=== PATIENT | male | born 1935 | race Caucasian/White ===

== ENCOUNTER 2016-11-26 12:45 | Emergency (ER) | payer MEDICARE, OTHER ==
[2016-11-26] MEDS ORDERED: Sodium Chloride 0.9% 10 ML Syringe FLUSH PRN (12:49)
--- NOTE | 2016-11-26 12:50 | EDM.PDOC ---
ED HPI DIZZINESS - General Chief Complaint: Neuro Symptoms/Deficits Stated Complaint: FROM CLINIC Time Seen by Provider: 11/26/16 12:47 Source of Information: Reports: Patient, Old records, RN, RN notes reviewed Exam Limitations: Reports: No limitations - History of Present Illness INITIAL COMMENTS - FREE TEXT/NARRATIVE: Arrives from clinic with c/o persistent dizziness with vomiting that began sometime this morning. Pt went to clinic requesting to see his PCP, but the doctor was out to lunch. Due to the general appearance of the pt and his Sx's the clinic nurse brought him over to the ER by wheel chair. Pt states he didn't feel well in general yesterday, but denies headache, CP, palpitations, visual changes, N/V, or dizziness at that time. Today he reports on set of dizziness, with a feeling that his balance was off, and lightheadedness with intense nausea but no vomiting. He denies headache, syncope, visual changes, acute weakness. He reports chronic/stable right sided weakness from a prior CVA. Hx ischemic CVA x3. AAA s/p sleeve repair. CAD s/p CAGB, pacer with ICD. Symptom Onset Date: 11/26/16 Timing/Duration: Reports: Constant Baseline Function: Reports: ambulatory Quality: Reports: lightheaded, spinning Severity: moderate Associated Symptoms: Reports: off balance - Related Data Allergies/ADRs: Allergies Allergy/AdvReac Type Severity Reaction Status Date / Time ciprofloxacin Allergy Other Verified 11/26/16 12:50 niacin Allergy FLUSHED Verified 11/26/16 12:50 [From Niaspan Extended-Release] Home Meds: Home Meds Acetaminophen 2 tab PO Q4H 05/04/15 [History] Amiodarone HCl [Amiodarone HCl] 1 tab PO DAILY 05/04/15 [History] Apixaban [Eliquis] 1 tab PO BID 05/04/15 [History] Nitroglycerin [Nitrostat] 1 tab SL ASDIRECTED PRN 05/04/15 [History] Fluvastatin Sodium [Fluvastatin ER] 80 mg PO ASDIRECTED 11/26/16 [History] Furosemide [Lasix] 20 mg PO DAILY 11/26/16 [History] Gabapentin [Neurontin] 300 mg PO BEDTIME 11/26/16 [History] Labetalol HCl [Labetalol] 1.5 tab PO DAILY 11/26/16 [History] Past Medical History HEENT History: Reports: Cataract, Impaired vision, Sinusitis Cardiovascular History: Reports: Aneurysm (AAA), Arrhythmia, Automatic implantable cardioverter defibrillators, Bypass, CAD, High cholesterol, Hypertension, Pacemaker, Stents Gastrointestinal History: Reports: GERD Musculoskeletal History: Reports: Arthritis, Back pain, chronic Neurological History: Reports: CVA Endocrine/Metabolic History: Reports: Hypothyroidism Hematologic History: Reports: B12 deficiency, Idiopathic thrombocytopenia - Past Surgical History HEENT Surgical History: Reports: Cataract surgery Cardiovascular Surgical History: Reports: AAA repair, AICD, Coronary artery bypass, Coronary artery stent, Pacer Other Cardiovascular Surgeries/Procedures: cardiac cath Social & Family History - Family History Family Medical History: Noncontributory - Tobacco Use Smoking Status *Q: Former Smoker - Recreational Drug Use Recreational Drug Use: No - Living Situation & Occupation Living situation: Reports: , with spouse Occupation: retired ED ROS GENERAL - Review of Systems Review Of Systems: See Below Constitutional: Reports: no symptoms HEENT: Reports: No symptoms Respiratory: Reports: Shortness of Breath Cardiovascular: Reports: Lightheadedness Endocrine: Reports: no symptoms GI/Abdominal: Reports: Nausea. Denies: Abdominal pain, Black stool, Bloody stool, Constipation, Diarrhea, Distension, Hematemesis, Hematochezia, Melena : Reports: no symptoms Musculoskeletal: Reports: no symptoms Skin: Reports: no symptoms Neurological: Reports: Confusion, Dizziness, Pre-Existing Deficit (Rt sided weakness from previous CVA.). Denies: Headache Hematologic/Lymphatic: Reports: no symptoms Immunologic: Reports: no symptoms ED EXAM, DIZZINESS - Physical Exam Exam: See Below Exam Limited By: No limitations General Appearance: alert, WD/WN, no apparent distress Eye Exam: bilateral eye: EOMI, normal inspection, PERRL Ears: normal external exam, normal canal, hearing grossly normal, normal TMs Nose: normal inspection, normal mucosa, no blood Throat/Mouth: Normal inspection, Normal lips, Normal teeth, Normal gums, Normal oropharynx, Normal voice, No airway compromise Head Exam: atraumatic, normocephalic Neck: normal inspection, supple, non-tender, full range of motion. No: lymphadenopathy (L), lymphadenopathy (R) Respiratory/Chest: no respiratory distress, no accessory muscle use Cardiovascular: normal peripheral pulses, regular rate, rhythm, no edema, no JVD , no murmur GI/Abdominal: normal bowel sounds, soft, non tender, no distention, no abnormal bruit (Male) Exam: Deferred Rectal (Males) Exam: Deferred Neurological: alert, normal mood/affect, CN II-XII intact, no motor/sensory deficits, oriented x 3 Back Exam: normal inspection, full range of motion. No: CVA tenderness (L), CVA tenderness (R) Extremities: normal inspection, normal range of motion, non-tender, no pedal edema, normal capillary refill Psychiatric: normal affect, normal mood Skin Exam: Warm, Dry, Intact, Normal color, No rash EKG INTERPRETATION EKG Date: 11/26/16 Time: 12:58 Rhythm: other (Paced without capture) Rate (beats/min): 68 Comparison: NA - no prior EKG Course - Vital Signs Last Recorded V/S: Last Vital Signs Temp 36.2 C 11/26/16 12:53 Pulse 70 11/26/16 13:43 Resp 18 11/26/16 13:43 BP 130/85 11/26/16 13:43 Pulse Ox 96 11/26/16 13:43 - Orders/Labs/Meds Orders: Active Orders 24 hr Category Date Time Status EKG 12 Lead [EKG Documentation Completion] [RC] STAT Care 11/26/16 12:50 Active Orthostatic Vital Signs [RC] ASDIRECTED Care 11/26/16 12:58 Active Peripheral IV Care [RC] . DIRECTED Care 11/26/16 12:50 Active Head wo Cont [CT] Stat Exams 11/26/16 12:59 Taken DRUG SCREEN URINE BIORAD [URCHEM] Stat Lab 11/26/16 12:50 Uncollected UA W/MICROSCOPIC [URIN] Stat Lab 11/26/16 12:50 Uncollected Sodium Chloride 0.9% [Saline Flush] Med 11/26/16 12:49 Active 10 ml FLUSH ASDIRECTED PRN Peripheral IV Insertion Adult [OM.PC] Stat Oth 11/26/16 12:50 Ordered Medication Orders Sodium Chloride (Saline Flush) 10 ml FLUSH ASDIRECTED PRN PRN Reason: Keep Vein Open Last Admin: 11/26/16 13:09 Dose: 10 ml Labs: Laboratory Tests 11/26/16 11/26/1617 Range/Units 12:58 12:58 12:58 WBC 6.8 (5.0-10.0) 10^3/uL RBC 4.35 L (4.6-6.2) 10^6/uL Hgb 14.1 (14.0-18.0) g/dL Hct 41.3 (40.0-54.0) % MCV 94.9 (80-100) fL MCH 32.4 (27.0-34.0) pg MCHC 34.1 (33.0-35.0) g/dL Plt Count 161 (150-450) 10^3/uL Neut % (Auto) 56.1 (42.2-75.2) % Lymph % (Auto) 25.6 (20.5-50.1) % [place] % (Auto) 12.0 H (2-8) % Eos % (Auto) 5.9 H (1.0-3.0) % Baso % (Auto) 0.4 (0.0-1.0) % Add Manual Diff Yes Neutrophils % (Manual) 55 % Band Neutrophils % 2 % Lymphocytes % (Manual) 26 % Monocytes % (Manual) 10 % Eosinophils % (Manual) 7 % PT 11.2 (9.0-12.0) SEC INR 1.1 (0.9-1.2) APTT 30.3 (22.0-34.0) SEC Sodium 139 (135-145) mmol/L Potassium 4.1 (3.6-5.0) mmol/L Chloride 104 (101-111) mmol/L Carbon Dioxide 28.0 (21.0-31.0) mmol/L Anion Gap 11.1 BUN 25 H (7-18) mg/dL Creatinine 1.0 (0.6-1.3) mg/dL Est Cr Clr Drug Dosing 56.92 mL/min Estimated GFR (MDRD) > 60 BUN/Creatinine Ratio 25.00 Glucose 91 (74-105) mg/dL Calcium 9.4 (8.4-10.2) mg/dl Total Bilirubin 0.8 (0.2-1.0) mg/dL AST 21 (10-42) IU/L ALT 19 (10-60) IU/L Alkaline Phosphatase 38 L (42-121) IU/L Troponin I < 0.02 (0.00-0.02) ng/ml B-Natriuretic Peptide 193 H (0-100) pg/ml Total Protein 7.0 (6.7-8.2) g/dl Albumin 4.1 (3.2-5.5) g/dl Globulin 2.9 Albumin/Globulin Ratio 1.41 Meds: Medications Generic Name Dose Route Start Last Admin Trade Name Freq PRN Reason Stop Dose Admin Sodium Chloride 10 ml 11/26/16 12:49 11/26/16 13:09 Saline Flush FLUSH 10 ml ASDIRECTED PRN Administration Keep Vein Open Discontinued Medications Generic Name Dose Route Start Last Admin Trade Name Freq PRN Reason Stop Dose Admin Ondansetron HCl 4 mg 11/26/16 13:12 11/26/16 13:16 Zofran IV 11/26/16 13:13 4 mg ONETIME ONE Administration - Radiology Interpretation Free Text/Narrative:: CT Head: acute I.C. hemorrhage, see Rad. report. Departure - Departure Time of Disposition: 14:02 Disposition: DC/Tfer to Acute Hospital 02 Condition: critical Clinical Impression: Hemorrhagic cerebrovascular accident (CVA) Forms: ED Department Discharge, Interfacility Transfer EMTALA - My Orders Last 24 Hours: My Active Orders 11/26/16 12:49 Sodium Chloride 0.9% [Saline Flush] 10 ml FLUSH ASDIRECTED PRN 11/26/16 12:50 EKG 12 Lead [EKG Documentation Completion] [RC] STAT Peripheral IV Care [RC] . DIRECTED DRUG SCREEN URINE BIORAD [URCHEM] Stat UA W/MICROSCOPIC [URIN] Stat Peripheral IV Insertion Adult [OM.PC] Stat 11/26/16 12:58 Orthostatic Vital Signs [RC] ASDIRECTED 11/26/16 12:59 Head wo Cont [CT] Stat - Assessment/Plan Last 24 Hours: My Active Orders 11/26/16 12:49 Sodium Chloride 0.9% [Saline Flush] 10 ml FLUSH ASDIRECTED PRN 11/26/16 12:50 EKG 12 Lead [EKG Documentation Completion] [RC] STAT Peripheral IV Care [RC] . DIRECTED DRUG SCREEN URINE BIORAD [URCHEM] Stat UA W/MICROSCOPIC [URIN] Stat Peripheral IV Insertion Adult [OM.PC] Stat 11/26/16 12:58 Orthostatic Vital Signs [RC] ASDIRECTED 11/26/16 12:59 Head wo Cont [CT] Stat
[2016-11-26] MEDS ORDERED: Ondansetron 4 MG/2 ML SDV IV ONE (13:12)
[2016-11-26 13:23] LABS: CHLORIDE,CL 104 mmol/L (101-111); SODIUM,NA 139 mmol/L (135-145)
[2016-11-26 13:43] VITALS: BP 130/85
[2016-11-26] MEDS ORDERED: levETIRAcetam 1,000 MG in Sodium Chloride 0.9% 100 ML IV ONE (14:11)
--- NOTE | 2016-11-26 15:46 | CT ---
CLINICAL HISTORY: 80-year-old male with cardiac pacemaker ("not capturing") on anticoagulant who has a history of previous CVAs (x3) now complaining of dizziness and recurrent near syncope. SCAN TECHNIQUE: Volume acquisition of data from an emergency unenhanced CT scan of the head and brai n obtained with the patient lying supine on the Siemens multislice CT scanner [place], [place]. All data archived in the PACS system for storage, reformatting, study. INTERPRETATION: Abnormal. 1. *Asymmetric acute new round intracranial bleed basal ganglia (thalamus) deep in the right cerebra l hemisphere with extensive surrounding edema not evident on 22 January 2016 exam. 2. Multiple scattered areas of decreased brain attenuation (ischemic infarcts) identified throughout the periventricular white matter of both cerebral hemispheres unchanged. 3. No new signs of supratentorial or posterior fossa mass lesion; other intracerebral, intraventricu lar or subarachnoid bleed; hydrocephalus or ischemic infarct. 4. Uniformly thick bony calvarium. Symmetric clear pneumatization of the mastoid and paranasal sinus es. No extracerebral/intracranial epidural or subdural hematoma. CRITICAL STUDY: Exam discussed with emergency room provider Dr. Zachary Lundy 1345 hours.
--- NOTE | 2016-12-08 09:39 | EKG ---
11/26/2016- MARGARET PRETTY - EKG done on a 80-year-old male showing a paced rhythm with a heart rate of 68 beats per minute, prolonged QT interval at 464. [facility] /[id number]
== END 2016-11-26 14:35 ==
LOC: DL.ED 12:45
DX: I62.9 Nontraumatic intracranial hemorrhage, unspecified (principal); I25.810 Atherosclerosis of coronary artery bypass graft(s) without angina pectoris; E78.00 Pure hypercholesterolemia, unspecified; R06.02 Shortness of breath; I10 Essential (primary) hypertension; K21.9 Gastro-esophageal reflux disease without esophagitis; M19.90 Unspecified osteoarthritis, unspecified site; E03.9 Hypothyroidism, unspecified; Z88.1 Allergy status to other antibiotic agents; Z79.899 Other long term (current) drug therapy; Z98.49 Cataract extraction status, unspecified eye; Z87.891 Personal history of nicotine dependence
CPT/HCPCS: 36415; 70450; 80053; 83880; 84484; 85025; 85610; 85730; 93005; 93010; 96365; 96375; 99285; J1953; J2405; J7050

== ENCOUNTER 2017-02-10 13:25 | Emergency (ER) | payer MEDICARE, OTHER ==
[2017-02-10] MEDS ORDERED: Sodium Chloride 0.9% 10 ML Syringe FLUSH PRN (13:37)
[2017-02-10] MEDS ORDERED: Ondansetron 4 MG/2 ML SDV IV ONE (14:07)
--- NOTE | 2017-02-10 14:07 | EDM.PDOC ---
ED HPI GENERAL MEDICAL PROBLEM - General Chief Complaint: Gastrointestinal Problem Stated Complaint: DOESNT FELL WELL [id number] Time Seen by Provider: 02/10/17 14:02 Source of Information: Reports: Patient History Limitations: Reports: No Limitations - History of Present Illness INITIAL COMMENTS - FREE TEXT/NARRATIVE: Pt states that he has been feeling nauseous for the past one hour. States that it came on suddenly and has continued but he has not had any vomiting. States that he had a similar episode yesterday with diaphoresis that subsided. States today he also feels lightheaded. Denies pain currently. States that he was started on a pain patch (fentanyl 12 mcg/hr) and symptoms have increased since application. No other complaints currently. Onset: Today Duration: Constant Location: Reports: Chest Improves with: Reports: None Worsens with: Reports: Movement Associated Symptoms: Reports: Nausea/Vomiting - Related Data Allergies Allergy/AdvReac Type Severity Reaction Status Date / Time ciprofloxacin Allergy Other Verified 02/10/17 13:27 niacin Allergy FLUSHED Verified 02/10/17 13:27 [From Niaspan Extended-Release] Home Meds: Home Meds Acetaminophen 2 tab PO Q4H 05/04/15 [History] Amiodarone HCl [Amiodarone HCl] 1 tab PO DAILY 05/04/15 [History] Apixaban [Eliquis] 1 tab PO BID 05/04/15 [History] Nitroglycerin [Nitrostat] 1 tab SL ASDIRECTED PRN 05/04/15 [History] Fluvastatin Sodium [Fluvastatin ER] 80 mg PO ASDIRECTED 11/26/16 [History] Furosemide [Lasix] 20 mg PO PRN 11/26/16 [History] Gabapentin [Neurontin] 300 mg PO TID 11/26/16 [History] Labetalol HCl [Labetalol] 1.5 tab PO BID 11/26/16 [History] fentaNYL [Duragesic] 12 mcg TRDERM Q72H 02/10/17 [History] Past Medical History HEENT History: Reports: Cataract, Impaired Vision, Sinusitis Other HEENT History: wears glasses Cardiovascular History: Reports: Aneurysm, Arrhythmia, Automatic Implantable Cardioverter Defibrillators, Bypass, CAD, High Cholesterol, Hypertension, Pacemaker, Stents Respiratory History: Reports: None Gastrointestinal History: Reports: GERD Genitourinary History: Reports: None Musculoskeletal History: Reports: Arthritis, Back Pain, Chronic Neurological History: Reports: CVA Psychiatric History: Reports: None Endocrine/Metabolic History: Reports: Hypothyroidism Hematologic History: Reports: B12 Deficiency, Idiopathic Thrombocytopenia Immunologic History: Reports: None Oncologic (Cancer) History: Reports: None Dermatologic History: Reports: None - Past Surgical History HEENT Surgical History: Reports: Cataract Surgery Cardiovascular Surgical History: Reports: AAA repair, AICD, Coronary Artery Bypass, Coronary Artery Stent, Pacer Social & Family History - Family History Family Medical History: Noncontributory - Tobacco Use Smoking Status *Q: Former Smoker Used Tobacco, but Quit: Yes Month Tobacco Last Used: ? - Caffeine Use Caffeine Use: Reports: Coffee - Recreational Drug Use Recreational Drug Use: No - Living Situation & Occupation Living situation: Reports: , with Spouse Occupation: Retired ED ROS GENERAL - Review of Systems Review Of Systems: ROS reveals no pertinent complaints other than HPI. Neurological: Reports: Weakness ED EXAM, NEURO - Physical Exam Exam: See Below Exam Limited By: No Limitations General Appearance: Alert, WD/WN, No Apparent Distress Eye Exam: Bilateral Eye: PERRL Ears: Other Head Exam: Atraumatic, Normocephalic Neck: Normal Inspection, Supple, Non-Tender, Full Range of Motion Respiratory/Chest: No Respiratory Distress, Lungs Clear, Normal Breath Sounds, No Accessory Muscle Use, Chest Non-Tender Cardiovascular: Normal Peripheral Pulses, Regular Rate, Rhythm, No Edema, No Gallop, No JVD, No Murmur, No Rub GI/Abdominal: Normal Bowel Sounds, Soft, Non-Tender, No Organomegaly, No Distention, No Abnormal Bruit, No Mass Neurological: Alert, Normal Mood/Affect, Normal Dorsiflexion, CN II-XII Intact, Normal Plantar Flexion, Normal Reflexes, No Motor/Sensory Deficits, Oriented x 3 Back Exam: Normal Inspection, Full Range of Motion, NT Extremities: Normal Inspection, Normal Range of Motion, Non-Tender, No Pedal Edema, Normal Capillary Refill Skin Exam: Warm, Dry, Intact, Normal Color, No Rash Course - Vital Signs Last Recorded V/S: Last Vital Signs Temp 97.8 F 02/10/17 13:27 Pulse 68 02/10/17 16:20 Resp 16 02/10/17 16:20 BP 116/65 02/10/17 16:20 Pulse Ox 98 06/27/17 16:20 - Orders/Labs/Meds Orders: Active Orders 24 hr Category Date Time Status EKG Documentation Completion [RC] STAT Care 02/10/17 13:37 Active Glucose [Blood Glucose Check, Bedside] [] ONETIME Care 02/10/17 13:39 Active Oral Fluid Challenge [RC] ASDIRECTED Care 02/10/17 16:22 Active Sodium Chloride 0.9% [Saline Flush] Med 02/10/17 13:37 Active 10 ml FLUSH ASDIRECTED PRN Saline Lock Insert [OM.PC] Stat Oth 02/10/17 13:37 Ordered Medication Orders Sodium Chloride (Saline Flush) 10 ml FLUSH ASDIRECTED PRN PRN Reason: Keep Vein Open Last Admin: 02/10/17 13:51 Dose: 10 ml Labs: Laboratory Tests 02/10/17 02/10/17 02/10/17 Range/Units 13:49 13:49 13:49 WBC 6.7 (5.0-10.0) 10^3/uL RBC 4.51 L (4.6-6.2) 10^6/uL Hgb 14.1 (14.0-18.0) g/dL Hct 42.9 (40.0-54.0) % MCV 95.1 (80-100) fL MCH 31.3 (27.0-34.0) pg MCHC 32.9 L (33.0-35.0) g/dL Plt Count 146 L (150-450) 10^3/uL Neut % (Auto) 61.9 (42.2-75.2) % Lymph % (Auto) 23.0 (20.5-50.1) % [place] % (Auto) 11.3 H (2-8) % Eos % (Auto) 3.2 H (1.0-3.0) % Baso % (Auto) 0.6 (0.0-1.0) % Sodium 139 (135-145) mmol/L Potassium 4.6 (3.6-5.0) mmol/L Chloride 103 (101-111) mmol/L Carbon Dioxide 28.0 (21.0-31.0) mmol/L Anion Gap 12.6 BUN 26 H (7-18) mg/dL Creatinine 1.1 (0.6-1.3) mg/dL Est Cr Clr Drug Dosing 52.68 mL/min Estimated GFR (MDRD) > 60 Glucose 109 H (74-105) mg/dL POC Glucose (83-110) mg/dl Calcium 9.5 (8.4-10.2) mg/dl Creatine Kinase 47 (26-174) IU/L Creatine Kinase Index 2.8 H (0-2.4) % CK-MB (CK-2) 1.30 (0.4-4.7) ng/mL Troponin I < 0.02 (0.00-0.02) ng/ml 02/10/17 Range/Units 13:57 WBC (5.0-10.0) 10^3/uL RBC (4.6-6.2) 10^6/uL Hgb (14.0-18.0) g/dL Hct (40.0-54.0) % MCV (80-100) fL MCH (27.0-34.0) pg MCHC (33.0-35.0) g/dL Plt Count (150-450) 10^3/uL Neut % (Auto) (42.2-75.2) % Lymph % (Auto) (20.5-50.1) % [place] % (Auto) (2-8) % Eos % (Auto) (1.0-3.0) % Baso % (Auto) (0.0-1.0) % Sodium (135-145) mmol/L Potassium (3.6-5.0) mmol/L Chloride (101-111) mmol/L Carbon Dioxide (21.0-31.0) mmol/L Anion Gap BUN (7-18) mg/dL Creatinine (0.6-1.3) mg/dL Est Cr Clr Drug Dosing mL/min Estimated GFR (MDRD) Glucose (74-105) mg/dL POC Glucose 104 (83-110) mg/dl Calcium (8.4-10.2) mg/dl Creatine Kinase (26-174) IU/L Creatine Kinase Index (0-2.4) % CK-MB (CK-2) (0.4-4.7) ng/mL Troponin I (0.00-0.02) ng/ml Meds: Medications Generic Name Dose Route Start Last Admin Trade Name Freq PRN Reason Stop Dose Admin Sodium Chloride 10 ml 02/10/17 13:37 02/10/17 13:51 Saline Flush FLUSH 10 ml ASDIRECTED PRN Administration Keep Vein Open Discontinued Medications Generic Name Dose Route Start Last Admin Trade Name Cara PRN Reason Stop Dose Admin Ondansetron HCl 4 mg 02/10/17 14:07 02/10/17 14:24 Zofran IV 02/10/17 14:08 4 mg ONETIME ONE Administration - Re-Assessments/Exams Free Text/Narrative Re-Assessment/Exam: 02/10/17 15:00 Fentanyl patch removed. Zofran given. Pt resting quietly currently. No complaints of nause. Will continue to monitor and attempt PO challenge. 02/10/17 16:58 Pt tolerated PO challenge. Appears more alert and comfortable. Request to go home. Will DC home Departure - Departure Time of Disposition: 16:59 Disposition: Home, Self-Care 01 Condition: Good Clinical Impression: Drug-induced nausea and vomiting - Discharge Information Instructions: Nausea and Vomiting, Adult, [id number] Forms: ED Department Discharge Additional Instructions: Tell your primary care provider that the fentanyl patch caused severe nausea and lightheadedness and was removed. You may need a lower dose. Continue to take in fluids as tolerated. You may want to start with a bland or B.R.A.T ( bananas, rice, apples and toast) diet for now and increase as tolerated. Return if any worsening symptoms. - My Orders Last 24 Hours: My Active Orders 02/10/17 13:37 EKG Documentation Completion [RC] STAT Sodium Chloride 0.9% [Saline Flush] 10 ml FLUSH ASDIRECTED PRN Saline Lock Insert [OM.PC] Stat 02/10/17 13:39 Glucose [Blood Glucose Check, Bedside] [RC] ONETIME 02/10/17 16:22 Oral Fluid Challenge [RC] ASDIRECTED - Assessment/Plan Last 24 Hours: My Active Orders 02/10/17 13:37 EKG Documentation Completion [RC] STAT Sodium Chloride 0.9% [Saline Flush] 10 ml FLUSH ASDIRECTED PRN Saline Lock Insert [OM.PC] Stat 02/10/17 13:39 Glucose [Blood Glucose Check, Bedside] [RC] ONETIME 02/10/17 16:22 Oral Fluid Challenge [RC] ASDIRECTED
[2017-02-10 14:19] LABS: CHLORIDE,CL 103 mmol/L (101-111); SODIUM,NA 139 mmol/L (135-145)
[2017-02-10 16:20] VITALS: BP 116/65
--- NOTE | 2017-02-16 01:31 | EKG ---
02/10/2017 - MARGARET PRETTY - This 12-lead EKG shows an underlying sinus rhythm in this patient with an underlying pacemaker. There is a prolonged CT interval. No acute ST-segment or T-wave changes. No other comments are made. [facility] /[id number]
== END 2017-02-10 17:18 | disposition home or self-care (01) ==
LOC: DL.ED 13:25
DX: T40.4X5A Adverse effect of other synthetic narcotics, initial encounter (principal); R11.2 Nausea with vomiting, unspecified; I25.10 Atherosclerotic heart disease of native coronary artery without angina pectoris; I10 Essential (primary) hypertension; E53.8 Deficiency of other specified B group vitamins; R42 Dizziness and giddiness; Z95.5 Presence of coronary angioplasty implant and graft; Z95.810 Presence of automatic (implantable) cardiac defibrillator; K21.9 Gastro-esophageal reflux disease without esophagitis; Z79.899 Other long term (current) drug therapy; Z88.1 Allergy status to other antibiotic agents; Z88.8 Allergy status to other drugs, medicaments and biological substances; Z87.891 Personal history of nicotine dependence
CPT/HCPCS: 36415; 70450; 71010; 80048; 82550; 82553; 82962; 84484; 85025; 93005; 93010; 96374; 99284; 99285; J2405; J7050

== ENCOUNTER 2017-03-28 03:29 | Emergency (ER) | payer MEDICARE, OTHER ==
[2017-03-28 03:47] VITALS: BP 165/86
[2017-03-28 04:12] LABS: CHLORIDE,CL 106 mmol/L (101-111); SODIUM,NA 142 mmol/L (135-145)
--- NOTE | 2017-03-28 06:39 | EDM.PDOC ---
<Irene Rendon Adan - Last Filed: 03/28/17 06:34> ED HPI GENERAL MEDICAL PROBLEM - General Chief Complaint: Cardiovascular Problem Stated Complaint: SWEATS, NAUSEOUS, JAW IS TIGHT, DEFIBULATOR PROBLE Time Seen by Provider: 03/28/17 03:40 Source of Information: Reports: Patient, Family History Limitations: Reports: No Limitations - History of Present Illness INITIAL COMMENTS - FREE TEXT/NARRATIVE: C/O feeling dizzy at night for past 3 night. TOnight brief episode of chest pain relieved with one nitro. Hx CVA x4 , CABG, cardiac stents. No recent fevers, no cough. notes BP has been in 120/s. Onset: Other Location: Reports: Head, Chest - Related Data Allergies Allergy/AdvReac Type Severity Reaction Status Date / Time ciprofloxacin Allergy Other Verified 03/28/17 03:37 niacin Allergy FLUSHED Verified 03/28/17 03:37 [From Niaspan Extended-Release] Home Meds: Home Meds Acetaminophen 2 tab PO Q4H 05/04/15 [History] Amiodarone HCl [Amiodarone HCl] 1 tab PO DAILY 05/04/15 [History] Apixaban [Eliquis] 1 tab PO BID 05/04/15 [History] Nitroglycerin [Nitrostat] 1 tab SL ASDIRECTED PRN 05/04/15 [History] Fluvastatin Sodium [Fluvastatin ER] 80 mg PO ASDIRECTED 11/26/16 [History] Furosemide [Lasix] 20 mg PO ASDIRECTED PRN 11/26/16 [History] Gabapentin [Neurontin] 300 mg PO TID 11/26/16 [History] Labetalol HCl [Labetalol] 1.5 tab PO BID 11/26/16 [History] Past Medical History HEENT History: Reports: Cataract, Impaired Vision, Sinusitis Other HEENT History: wears glasses Cardiovascular History: Reports: Pacemaker Respiratory History: Reports: None Gastrointestinal History: Reports: GERD Genitourinary History: Reports: None Musculoskeletal History: Reports: Arthritis, Back Pain, Chronic Neurological History: Reports: CVA Psychiatric History: Reports: None Endocrine/Metabolic History: Reports: Hypothyroidism Hematologic History: Reports: B12 Deficiency, Idiopathic Thrombocytopenia Immunologic History: Reports: None Oncologic (Cancer) History: Reports: None Dermatologic History: Reports: None - Past Surgical History HEENT Surgical History: Reports: Cataract Surgery Cardiovascular Surgical History: Reports: AAA Repair, AICD, Coronary Artery Bypass, Coronary Artery Stent, Pacer Social & Family History - Family History Family Medical History: Noncontributory - Tobacco Use Smoking Status *Q: Never Smoker Used Tobacco, but Quit: Yes Month Tobacco Last Used: ? Second Hand Smoke Exposure: Yes - Caffeine Use Caffeine Use: Reports: Coffee - Recreational Drug Use Recreational Drug Use: No - Living Situation & Occupation Living situation: Reports: , with Spouse Occupation: Retired ED ROS GENERAL - Review of Systems Review Of Systems: See Below Constitutional: Denies: Fever, Chills HEENT: Reports: No Symptoms Respiratory: Reports: No Symptoms Cardiovascular: Reports: Chest Pain, Dyspnea on Exertion, Lightheadedness. Denies: Palpitations, PND, Syncope Endocrine: Reports: No Symptoms GI/Abdominal: Reports: No Symptoms : Reports: No Symptoms Skin: Reports: No Symptoms Neurological: Reports: Pre-Existing Deficit Psychiatric: Reports: No Symptoms ED EXAM, GENERAL - Physical Exam Exam: See Below Exam Limited By: No Limitations General Appearance: Alert, No Apparent Distress Eye Exam: Bilateral Eye: EOMI, PERRL (3mm bilateral) Ears: Normal External Exam Nose: Normal Inspection Throat/Mouth: Normal Inspection Head: Atraumatic, Normocephalic, Sinus Tenderness Respiratory/Chest: No Respiratory Distress, Lungs Clear, Normal Breath Sounds Cardiovascular: Normal Peripheral Pulses, Regular Rate, Rhythm GI/Abdominal: Normal Bowel Sounds, Soft, Non-Tender Back Exam: Full Range of Motion, Vertebral Tenderness Extremities: Normal Inspection Neurological: Alert, Oriented, Normal Cognition, Other (hand blood bank technician equal, slight decrease strength RLE.) Psychiatric: Normal Affect, Normal Mood Skin Exam: Warm, Dry, Intact, Normal Color Course - Vital Signs Last Recorded V/S: Last Vital Signs Temp 36.4 C 03/28/17 03:43 Pulse 70 03/28/17 03:43 Resp 18 03/28/17 03:43 BP 165/86 H 03/28/17 03:43 Pulse Ox 96 03/28/17 03:43 Orthostatic Blood Pressure [ 154/97 Standing] Orthostatic Blood Pressure [ 165/82 Sitting] Orthostatic Blood Pressure [ 161/92 Supine] - Orders/Labs/Meds Orders: Active Orders 24 hr Category Date Time Status EKG 12 Lead [EKG Documentation Completion] [RC] STAT Care 03/28/17 03:49 Active EKG 12 Lead [EKG Documentation Completion] [RC] URGENT Care 03/28/17 07:45 Active Orthostatic Vital Signs [RC] ASDIRECTED Care 03/28/17 04:07 Active Labs: Laboratory Tests 03/28/17 03/28/17 03/28/17 Range/Units 03:45 03:45 03:45 WBC 7.3 (5.0-10.0) 10^3/uL RBC 4.53 L (4.6-6.2) 10^6/uL Hgb 14.4 (14.0-18.0) g/dL Hct 42.9 (40.0-54.0) % MCV 94.7 (80-100) fL MCH 31.8 (27.0-34.0) pg MCHC 33.6 (33.0-35.0) g/dL Plt Count 139 L (150-450) 10^3/uL Neut % (Auto) 63.6 (42.2-75.2) % Lymph % (Auto) 19.1 L (20.5-50.1) % [place] % (Auto) 12.9 H (2-8) % Eos % (Auto) 4.0 H (1.0-3.0) % Baso % (Auto) 0.4 (0.0-1.0) % PT 10.0 (9.0-12.0) SEC INR 1.0 (0.9-1.2) Sodium 142 (135-145) mmol/L Potassium 4.2 (3.6-5.0) mmol/L Chloride 106 (101-111) mmol/L Carbon Dioxide 26.0 (21.0-31.0) mmol/L Anion Gap 14.2 BUN 22 H (7-18) mg/dL Creatinine 1.1 (0.6-1.3) mg/dL Est Cr Clr Drug Dosing TNP Estimated GFR (MDRD) > 60 BUN/Creatinine Ratio 20.00 Glucose 115 H (74-105) mg/dL Calcium 9.4 (8.4-10.2) mg/dl Total Bilirubin 0.9 (0.2-1.0) mg/dL AST 16 (10-42) IU/L ALT 12 (10-60) IU/L Alkaline Phosphatase 39 L (42-121) IU/L CK-MB (CK-2) (0.4-4.7) ng/mL Troponin I < 0.02 (0.00-0.02) ng/ml B-Natriuretic Peptide (0-100) pg/ml Total Protein 6.8 (6.7-8.2) g/dl Albumin 4.1 (3.2-5.5) g/dl Globulin 2.7 Albumin/Globulin Ratio 1.52 Amylase 41 (28-100) U/L Lipase 30 (22-51) U/L 03/28/17 03/28/17 03/28/17 Range/Units 03:45 03:45 07:50 WBC (5.0-10.0) 10^3/uL RBC (4.6-6.2) 10^6/uL Hgb (14.0-18.0) g/dL Hct (40.0-54.0) % MCV (80-100) fL MCH (27.0-34.0) pg MCHC (33.0-35.0) g/dL Plt Count (150-450) 10^3/uL Neut % (Auto) (42.2-75.2) % Lymph % (Auto) (20.5-50.1) % [place] % (Auto) (2-8) % Eos % (Auto) (1.0-3.0) % Baso % (Auto) (0.0-1.0) % PT (9.0-12.0) SEC INR (0.9-1.2) Sodium (135-145) mmol/L Potassium (3.6-5.0) mmol/L Chloride (101-111) mmol/L Carbon Dioxide (21.0-31.0) mmol/L Anion Gap BUN (7-18) mg/dL Creatinine (0.6-1.3) mg/dL Est Cr Clr Drug Dosing Estimated GFR (MDRD) BUN/Creatinine Ratio Glucose (74-105) mg/dL Calcium (8.4-10.2) mg/dl Total Bilirubin (0.2-1.0) mg/dL AST (10-42) IU/L ALT (10-60) IU/L Alkaline Phosphatase (42-121) IU/L CK-MB (CK-2) 1.10 (0.4-4.7) ng/mL Troponin I < 0.02 (0.00-0.02) ng/ml B-Natriuretic Peptide 85 (0-100) pg/ml Total Protein (6.7-8.2) g/dl Albumin (3.2-5.5) g/dl Globulin Albumin/Globulin Ratio Amylase (28-100) U/L Lipase (22-51) U/L Departure - Departure Disposition: DC/Tfer to [facility] 02 Clinical Impression: Near syncope Syncope Qualifiers: Syncope type: unspecified Qualified Code(s): R55 - Syncope and collapse Chest pain Qualifiers: Chest pain type: unspecified Qualified Code(s): R07.9 - Chest pain, unspecified Forms: ED Department Discharge, Interfacility Transfer EMTALA <Zachary Lundy - Last Filed: 03/28/17 08:54> ED HPI GENERAL MEDICAL PROBLEM - History of Present Illness INITIAL COMMENTS - FREE TEXT/NARRATIVE: Assumed care of pt from Irene SUTHERLAND at [id number] shift change with 2nd Troponin and repeat EKG pending. Pt reports he has remained pain free. Pt reports still having some dizziness. ED EXAM, GENERAL - Physical Exam Free Text/Narrative:: No change to exam as documented by Irene SUTHERLAND. EKG INTERPRETATION EKG Date: 03/28/17 Time: 07:52 Rhythm: Other (Paced w/delayed capture vs failure to capture) Rate (Beats/Min): 71 [place]: Normal P-Wave: Present (1st degree AVB) QRS: Other (PVC) ST-T: Other (borderline inferior lead T-wave abnormalities) QT: Prolonged Comparison: No Change Course - Radiology Interpretation Free Text/Narrative:: CT Head: no acute process, see Rad. report. CXR: no acute process. - Re-Assessments/Exams Free Text/Narrative Re-Assessment/Exam: 03/28/17 08:38 Pt will be transferred to [facility] with Dr. Tenorio accepting pt as a direct admit. Pt refuses ambulance/EMS transfer and acknowledges the risks of choosing to do so. Still he is adamant that he will only go by private vehicle with his to drive, and states that he is fully aware and accepts the risks of doing so. Departure - Departure Time of Disposition: 08:49 Reason for Transfer *Q: Primary PCI Indicated Condition: Fair, Serious
--- NOTE | 2017-04-06 10:39 | EKG ---
03/28/2017- MARGARET PRETTY - This is a 12-lead EKG, showing atrial ventricular dual paced complexes with a rate of 70. Normal QT duration. No significant ST-T changes. Borderline change in QTc interval. [facility] /[id number]
--- NOTE | 2017-04-06 10:39 | EKG ---
03/28/2017- MARGARET PRETTY - This is a standard 12-lead EKG showing first-degree AV block. Borderline T-wave abnormalities in the inferior leads. Prolonged QT interval. Premature ventricular complexes. [facility] /[id number]
== END 2017-03-28 09:27 ==
LOC: DL.ED 03:29
DX: R55 Syncope and collapse (principal); R07.9 Chest pain, unspecified; K21.9 Gastro-esophageal reflux disease without esophagitis; M19.90 Unspecified osteoarthritis, unspecified site; E03.9 Hypothyroidism, unspecified; Z98.49 Cataract extraction status, unspecified eye; Z98.890 Other specified postprocedural states; Z88.1 Allergy status to other antibiotic agents; Z79.899 Other long term (current) drug therapy; Z95.1 Presence of aortocoronary bypass graft
CPT/HCPCS: 36415; 70450; 71010; 80053; 82150; 82553; 83690; 83880; 84484; 85025; 85610; 93005; 93010; 99284; 99285

== ENCOUNTER 2017-06-21 01:40 | Emergency (ER) | payer MEDICARE, OTHER ==
[~2017-06-21 01:40] MED LIST: cefTRIAXone 1 GM, Lidocaine 1% 2.1 ML IM ONE
--- NOTE | 2017-06-21 01:45 | EDM.PDOC ---
Addendum entered and electronically signed by Camden Cesar MD 06/26/17 06 :59: Original Note: ED HPI GENERAL MEDICAL PROBLEM - General Chief Complaint: Genitourinary Problem Stated Complaint: [facility] Time Seen by Provider: 06/21/17 01:40 CDT Source of Information: Reports: Patient, EMS Notes Reviewed, Longterm Records History Limitations: Reports: No Limitations - History of Present Illness INITIAL COMMENTS - FREE TEXT/NARRATIVE: 81 yo white male s/p CVA 5 weeks ago w/ indwelling howard that was found to leak and then was changed and then plugged Onset: Today Onset Date: 06/21/17 Duration: Hour(s): Location: Reports: Pelvis Quality: Reports: Pressure Severity: Moderate Improves with: Reports: None Worsens with: Reports: None Associated Symptoms: Reports: No Other Symptoms Bladder Pain Score (Numeric/FACES): 1 - Related Data Allergies Allergy/AdvReac Type Severity Reaction Status Date / Time ciprofloxacin Allergy Other Verified 06/21/17 01:52 CDT niacin Allergy FLUSHED Verified 06/21/17 01:52 CDT [From Niaspan Extended-Release] Home Meds: Home Meds Acetaminophen 2 tab PO Q4H 05/04/15 [History] Amiodarone HCl [Amiodarone HCl] 1 tab PO DAILY 05/04/15 [History] Apixaban [Eliquis] 1 tab PO BID 05/04/15 [History] Nitroglycerin [Nitrostat] 1 tab SL ASDIRECTED PRN 05/04/15 [History] Fluvastatin Sodium [Fluvastatin ER] 80 mg PO ASDIRECTED 11/26/16 [History] Furosemide [Lasix] 20 mg PO ASDIRECTED PRN 11/26/16 [History] Gabapentin [Neurontin] 300 mg PO TID 11/26/16 [History] Labetalol HCl [Labetalol] 1.5 tab PO BID 11/26/16 [History] Past Medical History HEENT History: Reports: Cataract, Impaired Vision, Sinusitis Other HEENT History: wears glasses Cardiovascular History: Reports: Pacemaker Respiratory History: Reports: None Gastrointestinal History: Reports: GERD Genitourinary History: Reports: None Musculoskeletal History: Reports: Arthritis, Back Pain, Chronic Neurological History: Reports: CVA Psychiatric History: Reports: None Endocrine/Metabolic History: Reports: Hypothyroidism Hematologic History: Reports: B12 Deficiency, Idiopathic Thrombocytopenia Immunologic History: Reports: None Oncologic (Cancer) History: Reports: None Dermatologic History: Reports: None - Past Surgical History HEENT Surgical History: Reports: Cataract Surgery Cardiovascular Surgical History: Reports: AAA Repair, AICD, Coronary Artery Bypass, Coronary Artery Stent, Pacer Social & Family History - Family History Family Medical History: Noncontributory - Tobacco Use Smoking Status *Q: Never Smoker Used Tobacco, but Quit: Yes Month Tobacco Last Used: ? Second Hand Smoke Exposure: Yes - Caffeine Use Caffeine Use: Reports: Coffee - Recreational Drug Use Recreational Drug Use: No - Living Situation & Occupation Living situation: Reports: , with Spouse Occupation: Retired ED ROS GENERAL - Review of Systems Review Of Systems: See Below Constitutional: Reports: No Symptoms HEENT: Reports: No Symptoms Respiratory: Reports: No Symptoms Cardiovascular: Reports: No Symptoms Endocrine: Reports: No Symptoms GI/Abdominal: Reports: No Symptoms : Reports: Other (howard) Musculoskeletal: Reports: No Symptoms Skin: Reports: No Symptoms Neurological: Reports: No Symptoms Psychiatric: Reports: No Symptoms Hematologic/Lymphatic: Reports: No Symptoms Immunologic: Reports: No Symptoms ED EXAM, RENAL/ - Physical Exam Exam: See Below Exam Limited By: No Limitations General Appearance: Alert, No Apparent Distress Eye Exam: Bilateral Eye: EOMI, PERRL Ears: Normal External Exam Nose: Normal Inspection Throat/Mouth: Normal Inspection, Normal Lips Head: Atraumatic Neck: Normal Inspection Respiratory/Chest: No Respiratory Distress, Lungs Clear Cardiovascular: Normal Peripheral Pulses GI/Abdominal: Normal Bowel Sounds (Male) Exam: No Hernia, Normal Inspection, Other (howard inplace) Back Exam: Normal Inspection Extremities: Normal Inspection, Normal Range of Motion, Non-Tender Neurological: Alert, Oriented, CN II-XII Intact, Sensory/Motor Deficit (no use of left side) Psychiatric: Normal Affect Skin Exam: Warm, Dry, Intact Lymphatic: No Adenopathy Course - Vital Signs Last Recorded V/S: Last Vital Signs Temp 36.6 C 06/21/17 01:41 CDT Pulse 73 06/21/17 01:41 CDT Resp 19 06/21/17 01:41 CDT BP 130/65 06/21/17 01:41 CDT Pulse Ox 91 L 06/21/17 01:41 CDT - Orders/Labs/Meds Orders: Active Orders 24 hr Category Date Time Status CULTURE URINE [RM] Stat Lab 06/21/17 01:40 Received Labs: Laboratory Tests 06/21/17 Range/Units 01:40 POURER BUGGY LADLE Urine Color [place] (YELLOW) Urine Appearance Cloudy (CLEAR) Urine pH 5.0 (5.0-9.0) Ur Specific [place] 1.025 (1.005-1.030) Urine Protein >=300 H (NEGATIVE) Urine Glucose (UA) 250 H (NEGATIVE) Urine Ketones 40 H (NEGATIVE) Urine Occult Blood Large H (NEGATIVE) Urine Nitrite Positive H (NEGATIVE) Urine Bilirubin Moderate H (NEGATIVE) Urine Urobilinogen >=8.0 H (0.2-1.0) mg/dL Ur Leukocyte Esterase Large H (NEGATIVE) Urine RBC 40-50 H /HPF Urine WBC 50-75 H (0-5/HPF) /HPF Ur Epithelial Cells Moderate H /HPF Calcium Oxalate Crystal Moderate H /HPF Amorphous Sediment Moderate (0/HPF) /HPF Urine Bacteria Moderate H (0-FEW/HPF) /HPF Meds: Medications Discontinued Medications Generic Name Dose Route Start Last Admin Trade Name Freq PRN Reason Stop Dose Admin Ceftriaxone Sodium 1 gm/ 0 gm 06/21/17 01:16 POURER BUGGY LADLE Lidocaine HCl 2.1 ml IM 06/21/17 01:17 POURER BUGGY LADLE ONETIME ONE Departure - Departure Time of Disposition: 01:17 Disposition: DC/Tfer to [facility] 03 Condition: Good Clinical Impression: UTI, Urinary tract infectious disease - Discharge Information Instructions: Howard Catheter Care, Adult Forms: ED Department Discharge Additional Instructions: Increase intake of Water and Cranberry Juice Take the Oral Antibiotic as prescribed and complete: MACROBID 100mg BID # 20 F/U w/ PCP - My Orders Last 24 Hours: My Active Orders 06/21/17 01:40 CULTURE URINE [RM] Stat - Assessment/Plan Last 24 Hours: My Active Orders 06/21/17 01:40 CULTURE URINE [RM] Stat
[2017-06-21 01:52] VITALS: BP 130/65
== END 2017-06-21 02:55 ==
LOC: DL.ED 01:40
DX: N39.0 Urinary tract infection, site not specified (principal); E03.9 Hypothyroidism, unspecified; K21.9 Gastro-esophageal reflux disease without esophagitis; Z79.899 Other long term (current) drug therapy; Z88.8 Allergy status to other drugs, medicaments and biological substances
CPT/HCPCS: 81001; 87086; 96372; 99284; J0696